=== PATIENT | female | born 1950 | race Caucasian/White ===

== ENCOUNTER 2021-09-01 08:47 | Outpatient (CLI) | payer MEDICARE | END 2021-09-01 08:48 | disposition home or self-care (01) | LOC: BICRAD 08:47 | PROVIDERS: ATTEND Internal Medicine | DX: R22.31 Localized swelling, mass and lump, right upper limb (principal) | CPT/HCPCS: 71046 ==

== ENCOUNTER → 2021-09-01 | Outpatient (CLI) | payer MEDICARE | LOC: EDSTATUS 11:13 → ULT 15:58 → ERS 15:58 | DX: M79.604 Pain in right leg (principal) | CPT/HCPCS: 71046 ==

== ENCOUNTER 2021-09-29 08:37 | Outpatient (CLI) | payer MEDICARE | END 2021-09-29 08:38 | disposition home or self-care (01) | LOC: BICMAMMO 08:37 | PROVIDERS: ATTEND Internal Medicine | DX: Z12.31 Encounter for screening mammogram for malignant neoplasm of breast (principal); N63.10 Unspecified lump in the right breast, unspecified quadrant; N63.20 Unspecified lump in the left breast, unspecified quadrant | CPT/HCPCS: 77063; 77067 ==

== ENCOUNTER 2021-10-02 11:07 | Outpatient (CLI) | payer MEDICARE ==
[~2021-10-02 11:07] MED LIST: Iopamidol-370 76% 500 ML 1 ML ONE
== END 2021-10-02 11:08 | disposition home or self-care (01) ==
LOC: BICCT 11:07
PROVIDERS: ATTEND Student in an Organized Health Care Education/Training Program
DX: R22.1 Localized swelling, mass and lump, neck (principal); E04.9 Nontoxic goiter, unspecified; M67.28 Synovial hypertrophy, not elsewhere classified, other site; M85.9 Disorder of bone density and structure, unspecified
CPT/HCPCS: 70491; 82565

== ENCOUNTER 2021-10-06 08:47 | Outpatient (CLI) | payer MEDICARE | END 2021-10-06 08:48 | disposition home or self-care (01) | LOC: BICMAMMO 08:47 | PROVIDERS: ATTEND Internal Medicine | DX: N63.15 Unspecified lump in the right breast, overlapping quadrants (principal); N63.12 Unspecified lump in the right breast, upper inner quadrant | CPT/HCPCS: 76642 ×2; 77066; G0279 ==

== ENCOUNTER → 2021-10-13 | Day surgery (SDC) | payer MEDICARE | END | disposition home or self-care (01) | LOC: BICULT 12:42 | PROVIDERS: ATTEND Internal Medicine | DX: R92.8 Other abnormal and inconclusive findings on diagnostic imaging of breast (principal); Z53.9 Procedure and treatment not carried out, unspecified reason ==

== ENCOUNTER 2021-11-01 07:00 | Outpatient (CLI) | payer MEDICARE | END 2021-11-01 07:01 | disposition home or self-care (01) | LOC: BICULT 07:00 | PROVIDERS: ATTEND Student in an Organized Health Care Education/Training Program | DX: E04.1 Nontoxic single thyroid nodule (principal) | CPT/HCPCS: 76536 ==

== ENCOUNTER 2021-12-08 12:30 | Day surgery (SDC) | payer MEDICARE ==
[2021-12-05 10:30] VITALS: BMI 25.4
[2021-12-08] MEDS ORDERED: Sodium Bicarbonate 2.5 MEQ/5 ML VIAL ONE (12:56)
[2021-12-08] MEDS ORDERED: Lidocaine 1% PF 5 ML VIAL ONE (12:56)
[2021-12-08 14:03] VITALS: BP 145/76
== END 2021-12-08 13:50 | disposition home or self-care (01) ==
LOC: ULT 12:30
PROVIDERS: ATTEND Student in an Organized Health Care Education/Training Program
PROC: 0G9G3ZX Drainage of Left Thyroid Gland Lobe, Percutaneous Approach, Diagnostic (ICD-10-PCS; principal; 2021-12-08)
DX: E04.1 Nontoxic single thyroid nodule (principal); M95.8 Other specified acquired deformities of musculoskeletal system; M19.019 Primary osteoarthritis, unspecified shoulder; Z79.1 Long term (current) use of non-steroidal anti-inflammatories (NSAID); Z79.899 Other long term (current) drug therapy; Z88.8 Allergy status to other drugs, medicaments and biological substances
CPT/HCPCS: 10005; 88173; 88305

== ENCOUNTER 2022-05-10 07:42 | Outpatient (CLI) | payer MEDICARE | END 2022-05-10 07:43 | disposition home or self-care (01) | LOC: TBSIIMAG 07:42 | PROVIDERS: ATTEND Neurological Surgery | DX: M47.26 Other spondylosis with radiculopathy, lumbar region (principal); M51.16 Intervertebral disc disorders with radiculopathy, lumbar region | CPT/HCPCS: 72148 ==

== ENCOUNTER 2022-08-21 11:46 | Outpatient (CLI) | payer MEDICARE | END 2022-08-21 11:47 | disposition home or self-care (01) | LOC: BICRAD 11:46 | PROVIDERS: ATTEND Internal Medicine | DX: M79.621 Pain in right upper arm (principal); S52.571A Other intraarticular fracture of lower end of right radius, initial encounter for closed fracture ==

== ENCOUNTER 2023-03-04 10:10 | Outpatient (CLI) | payer MEDICARE | END 2023-03-04 10:11 | disposition home or self-care (01) | LOC: MRI 10:10 | PROVIDERS: ATTEND Neurological Surgery | DX: M47.26 Other spondylosis with radiculopathy, lumbar region (principal); R26.9 Unspecified abnormalities of gait and mobility; M43.17 Spondylolisthesis, lumbosacral region | CPT/HCPCS: 70551; 72120 ==

== ENCOUNTER 2023-07-12 07:00 | Inpatient (IN) | payer MEDICARE ==
[2023-07-16] MEDS ORDERED: Dexmedetomidine 200 MCG/2 ML VIAL ONE (06:27)
[2023-07-16] MEDS ORDERED: Magnesium 5 GM/10 ML VIAL ONE (06:27)
[2023-07-16] MEDS ORDERED: Ketamine In 0.9 % NaCl 50 MG/5 ML SYRINGE ONE (06:27)
[2023-07-16] MEDS ORDERED: Fentanyl 250 MCG/5 ML VIAL ONE (06:35)
[2023-07-16] MEDS ORDERED: Ondansetron PF 4 MG/2 ML Vial ONE (06:35)
[2023-07-16] MEDS ORDERED: Dexamethasone 20 MG/5 ML VIAL ONE (06:35)
[2023-07-16] MEDS ORDERED: Rocuronium Bromide 10 MG/ML (10ML VIAL) ONE ×3 (06:35→11:10)
[2023-07-16] MEDS ORDERED: PROPOFOL 20 ML ONE (06:35)
[2023-07-16] MEDS ORDERED: Sodium Chloride 0.9% 100 ML ONE ×2 (06:43→08:09)
[2023-07-16] MEDS ORDERED: CEFAZOLIN 2 GM VIAL ONE (06:43)
[2023-07-16] MEDS ORDERED: HYDROcodone/Acetaminophen 10/325 mg Tablet PO PRN (06:50)
[2023-07-16] MEDS ORDERED: diphenhydrAMINE 50 MG/ML VIAL IVP PRN (06:50)
[2023-07-16] MEDS ORDERED: Prochlorperazine 10 MG/2 ML VIAL IM PRN (06:50)
[2023-07-16] MEDS ORDERED: Morphine 2 MG/ML VIAL SLOW IVP PRN (06:50)
[2023-07-16] MEDS ORDERED: HYDROcodone/Acetaminophen 7.5/325 mg Tablet PO PRN (06:50)
[2023-07-16] MEDS ORDERED: Ondansetron PF 4 MG/2 ML Vial IVP PRN (06:50)
[2023-07-16] MEDS ORDERED: ePHEDrine Sulfate 50 MG/10 ML VIAL ONE ×2 (07:48→09:32)
[2023-07-16] MEDS ORDERED: Thrombin 5000 UNITS/5 ML VIAL ONE (07:49)
[2023-07-16] MEDS ORDERED: Vancomycin 1 GM VIAL ONE ×2 (07:49→08:02)
[2023-07-16] MEDS ORDERED: EPINEPHrine 1 MG/ML VIAL ONE (08:01)
[2023-07-16] MEDS ORDERED: Bupivacaine PF 0.5% 30 ML VIAL ONE (08:02)
[2023-07-16] MEDS ORDERED: Promethazine HCl 25 MG/ML VIAL IM PRN (08:34)
[2023-07-16] MEDS ORDERED: HYDROmorphone 2 MG/ML VIAL SLOW IVP PRN (08:34)
[2023-07-16] MEDS ORDERED: Ondansetron HCl/PF 4 MG/2 ML Vial IVP PRN (08:34)
[2023-07-16] MEDS ORDERED: PROPOFOL 200 MG/20 ML VIAL ONE (11:08)
[2023-07-16] MEDS ORDERED: SUGAMMADEX SODIUM 200 MG/2 ML VIAL ONE (11:11)
[2023-07-16] MEDS ORDERED: fentaNYL 50 mcg/mL 1 mL Vial ONE (13:51)
[2023-07-16] MEDS: CEFAZOLIN 2 GM in Sodium Chloride 0.9% 100 ML IVPB SCH (16:39)
[2023-07-16] MEDS: Sodium Chloride 0.9% 1,000 ML IV SCH (16:40)
[2023-07-16] MEDS: Acetaminophen/Codeine 30-300mg Tablet PO PRN (17:37)
[2023-07-16] MEDS ORDERED: Alendronate Sodium 70 mg Tablet PO SCH (18:00)
[2023-07-16 18:06] VITALS: BMI 22.3
[2023-07-16] MEDS: guaiFENesin 200 MG TAB PO PRN (20:44)
[2023-07-17] MEDS: Ezetimibe 10 MG TAB PO SCH (08:22)
[2023-07-17] MEDS: tiZANidine HCl 4 MG TAB PO PRN (20:40)
[2023-07-18 08:21] VITALS: TEMP 97.6
[2023-07-18 10:13] VITALS: BP 100/61
[2023-07-19] MEDS ORDERED: FLU VACC QS2023(65UP)/MF59C/PF 60 MCG/0.5 ML SYRINGE IM ONE (18:15)
== END 2023-07-18 10:16 | disposition home or self-care (01) | DRG 29 ==
LOC: SURG A 07-16 05:51 → T4-B 07-16 15:18
PROVIDERS: ADMIT Neurological Surgery; ATTEND Neurological Surgery
PROC: 00NX0ZZ Release Thoracic Spinal Cord, Open Approach (ICD-10-PCS; principal; 2023-07-16)
PROC: 01N80ZZ Release Thoracic Nerve, Open Approach (ICD-10-PCS; 2023-07-16)
PROC: 00BX0ZZ Excision of Thoracic Spinal Cord, Open Approach (ICD-10-PCS; 2023-07-16)
DX: D32.1 Benign neoplasm of spinal meninges (principal); G95.20 Unspecified cord compression; M51.06 Intervertebral disc disorders with myelopathy, lumbar region; M48.07 Spinal stenosis, lumbosacral region; F41.9 Anxiety disorder, unspecified; M19.90 Unspecified osteoarthritis, unspecified site; I10 Essential (primary) hypertension; E78.00 Pure hypercholesterolemia, unspecified; M51.26 Other intervertebral disc displacement, lumbar region; M48.061 Spinal stenosis, lumbar region without neurogenic claudication
CPT/HCPCS: 36416; 86850; 86900; 86901; 88307; 88311; 88341; 88342; A4314; C1889; J0171; J0665; J1100; J2405; J2704; J3010; J3370; J3475; J3490; J7050

== ENCOUNTER 2023-07-12 08:53 | Outpatient (CLI) | payer MEDICARE ==
[2023-07-12 10:09] LABS: Hematocrit 43.6 % (34.9-44.5); Hemoglobin 15.1 g/dL (12.0-15.5); Mean Corpuscular HGB CONC 34.6 g/dL (32.0-36.0); Mean Corpuscular Hemoglobin 31.2 pg (27.0-33.0); Mean Corpuscular Volume 90.1 fl (81.6-98.3); Mean Platelet Volume 11.6 fl (7.4-10.4); Platelet Count 211 10x3/uL (150-450); Red Blood Cell (RBC) Count 4.84 10x6/uL (3.90-5.03); White Blood Cell (WBC) Count 6.3 10x3/uL (3.5-10.5)
[2023-07-12 10:41] LABS: INR-International Normal Ratio 0.9
== END 2023-07-12 08:54 | disposition home or self-care (01) ==
LOC: LABBT 08:53
PROVIDERS: ATTEND Neurological Surgery
DX: Z01.812 Encounter for preprocedural laboratory examination (principal); D32.1 Benign neoplasm of spinal meninges
CPT/HCPCS: 85027; 85610